=== PATIENT | female | born 1990 | race African-American/Black ===

== ENCOUNTER 2017-04-08 20:17 | Emergency (ER) | payer MEDICAID ==
[~2017-04-08] VITALS: Ht 167.6 cm; Wt 95.8 kg
[2017-04-08 20:45] VITALS: BP 126/78
[2017-04-09] MEDS ORDERED: KETOROLAC TROMETH 60MG/2ML VIAL IM ONE (00:30)
== END 2017-04-09 01:05 | disposition home or self-care (01) ==
LOC: ER 20:17
DX: K02.9 Dental caries, unspecified (principal)
CPT/HCPCS: 96372; 99283; J1885